=== PATIENT | female | born 1970 | race Caucasian/White ===

== ENCOUNTER 2018-04-19 16:54 | Emergency (ER) | payer MEDICAID ==
[~2018-04-19] VITALS: Ht 165.1 cm; Wt 94.8 kg
[2018-04-19 17:04] VITALS: BP 133/85; Ht 165.1 cm; Wt 94.8 kg
== END 2018-04-19 18:55 | disposition home or self-care (01) ==
LOC: ED 16:54
DX: R11.2 Nausea with vomiting, unspecified (principal); R19.7 Diarrhea, unspecified; E11.9 Type 2 diabetes mellitus without complications; I10 Essential (primary) hypertension; R10.9 Unspecified abdominal pain; F20.9 Schizophrenia, unspecified
CPT/HCPCS: 82962